=== PATIENT | female | born 1995 | race American Indian/Alaskan Native ===

== ENCOUNTER 2016-05-06 23:57 | Emergency (ER) | payer MEDICAID | END 2016-05-07 00:30 | disposition left against medical advice (07) | LOC: ED 23:57 | DX: R06.00 Dyspnea, unspecified (principal); Z88.1 Allergy status to other antibiotic agents; Z88.0 Allergy status to penicillin; Z53.21 Procedure and treatment not carried out due to patient leaving prior to being seen by health care provider ==